=== PATIENT | male | born 1930 | race Caucasian/White ===

== ENCOUNTER 2016-12-10 19:17 | Emergency (ER) | payer MEDICARE ==
[~2016-12-10 19:17] MED LIST: Sodium Chloride 0.9% 1,000 ML BAG ONE; Sodium Chloride 0.9% 100 ML BAG ONE
[2016-12-10] MEDS ORDERED: Dexamethasone 10 MG/ML VIAL ONE (19:56)
[2016-12-10] MEDS ORDERED: Ondansetron HCl/PF 4 MG/2 ML Vial ONE (19:56)
[2016-12-10] MEDS ORDERED: Ketorolac Tromethamine 30 MG/ML VIAL ONE (19:56)
[2016-12-10] MEDS ORDERED: Phenergan/Codeine 10-6.25mg/5ml UDCUP ONE (19:56)
[2016-12-10 19:57] LABS: INR-International Normal Ratio 1.4; PTT 36.4 SEC (22.9-36.1); Prothrombin Time 17.5 SEC (12.0-14.7)
[2016-12-10 20:08] LABS: ALT (SGPT) 19 U/L (8-55); AST (SGOT) 17 U/L (5-34); Albumin 3.3 g/dL (3.4-4.8); Alkaline Phosphatase 85 U/L (40-150); Anion Gap 16 mmol/L (10-20); BUN (Urea Nitrogen) 23 mg/dL (8.4-25.7); CK (CPK) 13 U/L (30-200); Calc. Creatinine Clearance 0 mL/min (70-130); Calcium 9.2 mg/dL (7.8-10.44); Carbon Dioxide 25 mmol/L (23-31); Chloride 97 mmol/L (98-107); Estimated GFR-MDRD 48; Globulin 3.5 g/dL (2.4-3.5); Glucose 190 mg/dL (83-110); Magnesium 1.8 mg/dL (1.6-2.6); Potassium 3.8 mmol/L (3.5-5.1); Protein, Total 6.8 g/dL (5.8-8.1); Sodium 134 mmol/L (136-145)
[2016-12-10 20:10] LABS: Troponin I Less than 0.010 ng/mL (< 0.028)
[2016-12-10 20:19] LABS: Band 1 % (5-11); Hemoglobin 13.6 g/dL (14.0-18.0); Lymphocytes 2 % (21-51); MDiff Complete? YES; Mean Corpuscular HGB CONC 33.9 g/dL (32.0-36.0); Mean Corpuscular Hemoglobin 30.4 pg (27.0-31.0); Mean Corpuscular Volume 89.6 fl (80.0-94.0); Mean Platelet Volume 8.1 fL (7.4-10.4); Monocytes 9 % (0-10); Neutrophil 80 % (42-75); PLT Morphology Comment Appears Decreased; Platelet Count 125 thou/uL (130-400); RBC Distribution Width 12.6 % (11.5-14.5); RBC Morphology Normal; Reactive Lymphocytes 8 % (0-10); Red Blood Cell (RBC) Count 4.48 mill/uL (4.70-6.10); White Blood Cell (WBC) Count 18.5 thou/uL (4.8-10.8)
--- NOTE | 2016-12-10 20:35 | RAD ---
PA AND LATERAL CHEST: 12/10/16 COMPARISON: 07/29/14 exam. HISTORY: Dyspnea. Heart size is borderline to slightly enlarged. There is increased opacification of the right lung ba se consistent with a moderate pleural effusion with atelectasis or infiltrate. Surgical clips are no kimmie in the right hilar region. IMPRESSION: Postoperative changes with surgical clips in the right hilar region. There has been development of m oderately large right pleural effusion with associated parenchymal change. POS: MING
[2016-12-10 20:55] LABS: CKMB 0.4 ng/mL (0-6.6)
[2016-12-10] MEDS ORDERED: cefTRIAXone\\ROCEPHIN 1 GM VIAL ONE (21:01)
== END 2016-12-10 21:34 | disposition short-term general hospital (02) ==
LOC: MADERS 19:17
DX: J18.9 Pneumonia, unspecified organism (principal); J91.0 Malignant pleural effusion; I10 Essential (primary) hypertension; F32.9 Major depressive disorder, single episode, unspecified; Z87.891 Personal history of nicotine dependence; Z79.82 Long term (current) use of aspirin; Z79.899 Other long term (current) drug therapy
CPT/HCPCS: 71020; 80053; 82550; 82553; 83735; 83880; 84484; 85025; 85610; 85730; 87040; 93005; 94640; 94760; 96365; 96375; J0696; J1100; J1885; J1956; J2405; J7050; J7620

== ENCOUNTER 2016-12-17 12:30 | Inpatient (IN) | payer MEDICARE ==
[2016-12-17] MEDS ORDERED: HYDROcodone/Acetaminophen 5/325 mg Tablet PO PRN (14:30)
[2016-12-17] MEDS ORDERED: Acetaminophen 325 MG TAB PO PRN (14:32)
[2016-12-17] MEDS: Metoprolol Tartrate 25 MG TAB PO SCH (20:35)
[2016-12-17] MEDS: Amoxicillin/Potassium Clav 875 MG TAB PO SCH (20:35)
--- NOTE | 2016-12-17 22:43 | HP ---
DATE OF ADMISSION: 12/17/2016 ADMITTING PHYSICIAN: Michaela Florence M.D. PRIMARY CARE PHYSICIAN: Vini Reynoso M.D. REASON FOR ADMISSION: Skilled rehabilitation in [place] [facility]. HISTORY OF PRESENT ILLNESS: Mr. Barber is a very pleasant 85-year-old male who was admitted initially at [facility] on 12/11/2016 and was diagnosed for sepsis with acute organ dysfunction. He was also noted to have pneumonia, which he failed outpatient therapy. His CT scan of his chest showed loculated right pleural effusion with collapse and consolidation. Patient underwent thoracentesis. His thoracentesis was consistent with empyema. Thus cardiothoracic surgeon was consulted and did a decortication and thoracostomy and chest tube placement. The patient did well during the hospital course. He had a serial chest x-rays and subsequently the chest tube was removed. His cultures came back negative. He received a broad spectrum antibiotic therapy during his hospitalization and prior to discharge it was changed to oral antibiotic, currently on Augmentin. During this hospitalization , he was also noted to have acute kidney failure and hyperglycemia that has been stabilized. He was sent to [place] on 12/17/2016 for purposes of skilled rehabilitation. He was deemed medically stable to be discharged, thus transferred today. When evaluated, the patient was accompanied by his son-in- law. Patient was awake, alert, afebrile and hemodynamically stable upon admission. He reports that he remains generally weak, but no acute new issues. PAST MEDICAL HISTORY: 1. 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 2. 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 3. History of SVT status post ablation. 4. History of shingles in the past. 5. History of DVT in the past. 6. Hypertension. 7. Hypothyroidism. 8. Depression. 9. Anxiety. PAST SURGICAL HISTORY: 1. Right lower lobe lung resection by Dr. Villalobos. 2. Cardiac ablation. 3. Thoracotomy and thoracocentesis for empyema on 12/11/[address] Thompson. 3. Status post right redo thoracotomy with total pulmonary decortication on 04/[address] Jona Moreno. SOCIAL HISTORY: Patient is a former tobacco smoker, he quit last year. No active drug or alcohol abuse reported. He currently lives by himself, his family lives next to him. He is very independent in his daily living prior to this admission. ALLERGIES: No known allergies. FAMILY HISTORY: Noncontributory. CURRENT MEDICATIONS: Aspirin 81 mg p.o. daily, sertraline 50 mg p.o. daily, amlodipine 5 mg p.o. daily, metoprolol 25 mg p.o. daily, levothyroxine 50 mcg p.o. daily, Augmentin 875 mg p.o. b.i.d. for 7 days.[place] 5/325 mg po q 6 hrs REVIEW OF SYSTEMS: GENERAL: Denies fever, chills, anorexia. Reports general weakness and fatigue. HEENT: No acute visual changes or hearing changes. RESPIRATORY: No pain with breathing, active shortness of breath, wheezing, dyspnea on exertion, and pain with breathing and bloody sputum. CARDIAC: No chest pain, edema, cyanosis, or paroxysmal nocturnal dyspnea. GASTROINTESTINAL: No nausea, vomiting, abdominal pain, diarrhea, constipation, or rectal bleeding. GENITOURINARY: No dysuria, hematuria, frequency, urgency or incontinence. MUSCULOSKELETAL: No acute joint pains or joint effusions and myalgia. NEUROLOGIC: No focal numbness, focal weakness, loss of consciousness or seizures. PSYCH: Reports chronic depressive symptoms/anxiety. No hallucinations. No suicidal thoughts or ideations. SKIN: Positive postoperative wound from recent thoracotomy. LABORATORY DATA: Current lab works, 12/16/2016. CBC: WBC 7, hemoglobin 11.6, hematocrit 34.8, and platelets 112. Chemistry on 12/17/2016, sodium 135, potassium 3.7, BUN 14, creatinine 0.75, estimated GFR greater than 90, glucose 100, calcium 8.7, magnesium 1.8. A1c on 12/11/2016, 5.6. Liver function tests on 12/16/2016, AST 38, ALT 37, alkaline phosphatase 75, albumin 2.7, at that time potassium was 2.9. SPECIALISTS: Dr. Thompson and Dr. Jona Moreno. PHYSICAL EXAMINATION: VITAL SIGNS: Blood pressure 147/71, temperature 97.7, pulse 67, respirations 18 , O2 saturation 97% on room air, weight 148 pounds, and height 5 feet 8 inches. GENERAL: The patient is awake, alert, oriented x3, not in distress. Generally weak looking, frail, elderly, not comfortable in exam. HEENT: Normocephalic, atraumatic. PERRL, intact EOM, nonicteric sclerae. Oral mucosa is moist. NECK: Supple. No LAD, no JVD, no bruit. CHEST: Normal excursion. Postoperative site, status post thoracostomy is dry , well-coaptated edges, no drainage, no covered with clean dressing. LUNGS: , Diminished breath sounds on the right lung field, Clear breath sounds left lung field. No rales, no crackles, no rhonchi, no wheezing. ABDOMEN: Flat, soft, normoactive bowel sounds, nondistended, nontender. No rebound, no guarding. Negative CVA tenderness bilaterally. EXTREMITIES: No edema, no cyanosis. SKIN: Moist and warm. NEUROLOGIC: Nonfocal. DTRs 2+ unsteady gait. PSYCHIATRIC: Calm with appropriate demeanor and affect. Good eye contact. ASSESSMENT: 1. Deconditioning. 2. Recent sepsis with acute organ dysfunction. 3. Right-sided empyema of the lung, status post thoracotomy, thoracentesis, and decortication and chest tube placement and removal. 4. Abnormal electrolytes, corrected. 5. Acute kidney failure, improved. 6. Hypothyroidism. 7. Hypertension. 8. Chronic atrial fibrillation. 9. History of lung cancer, required lobectomy. PLAN: The patient is admitted to [facility] for a skilled rehabilitation. PT consult in order to gain modified independence with his gait and ADL skills prior to returning to the home environment. OT consult to gain modified independence with self care ADL skills. The patient's pain will be managed with p.r.n. narcotics as well as constipation management. His comorbidities including right-sided empyema of the lung, status post thoracotomy , thoracocentesis and decortication, sepsis with acute organ dysfunction and electrolyte abnormality is currently stable and will be monitored closely. Routine labs will be ordered for routine monitoring. I will continue to monitor the patient for any medical comorbidities that may interfere with rehab progress. DISPOSITION: Home. ESTIMATED LENGTH OF STAY: 1-2 weeks. Further recommendations depending on the hospital course. CODE STATUS: Full. MTDD
[2016-12-18] MEDS ORDERED: Loperamide HCl 2 MG CAP PO PRN (06:33)
[2016-12-18] MEDS: Amoxicillin/Potassium Clav 875 MG TAB PO SCH ×2 (08:49→21:00)
[2016-12-18] MEDS: Levothyroxine Sodium 50 MCG TAB PO SCH (08:49)
[2016-12-18] MEDS: Aspirin 81 mg Enteric Coated Tablet PO SCH (08:50)
[2016-12-18] MEDS: Metoprolol Tartrate 25 MG TAB PO SCH ×2 (08:50→21:00)
[2016-12-18] MEDS ORDERED: Levothyroxine Sodium 50 MCG TAB PO SCH (09:00)
[2016-12-19] MEDS: Amoxicillin/Potassium Clav 875 MG TAB PO SCH ×2 (09:28→20:19)
[2016-12-19] MEDS: Levothyroxine Sodium 50 MCG TAB PO SCH (09:28)
[2016-12-19] MEDS: Aspirin 81 mg Enteric Coated Tablet PO SCH (09:29)
[2016-12-19] MEDS: Metoprolol Tartrate 25 MG TAB PO SCH ×2 (09:29→20:19)
[2016-12-20] MEDS: Aspirin 81 mg Enteric Coated Tablet PO SCH (09:06)
[2016-12-20] MEDS: Metoprolol Tartrate 25 MG TAB PO SCH ×2 (09:06→21:29)
[2016-12-20] MEDS: Amoxicillin/Potassium Clav 875 MG TAB PO SCH ×2 (09:07→21:29)
[2016-12-20] MEDS: Levothyroxine Sodium 50 MCG TAB PO SCH (09:07)
[2016-12-21] MEDS: Amoxicillin/Potassium Clav 875 MG TAB PO SCH ×2 (08:07→20:31)
[2016-12-21] MEDS: Aspirin 81 mg Enteric Coated Tablet PO SCH (08:07)
[2016-12-21] MEDS: Metoprolol Tartrate 25 MG TAB PO SCH ×2 (08:08→20:31)
[2016-12-21] MEDS: Levothyroxine Sodium 50 MCG TAB PO SCH (08:08)
[2016-12-21] MEDS: hydrOXYzine 25 MG TAB PO PRN (17:36)
[2016-12-22 00:15] VITALS: BMI 22.1
[2016-12-22] MEDS: Levothyroxine Sodium 50 MCG TAB PO SCH (08:40)
[2016-12-22] MEDS: Amoxicillin/Potassium Clav 875 MG TAB PO SCH ×2 (08:40→20:21)
[2016-12-22] MEDS: Aspirin 81 mg Enteric Coated Tablet PO SCH (08:40)
[2016-12-22] MEDS: Metoprolol Tartrate 25 MG TAB PO SCH ×2 (08:40→20:21)
[2016-12-23] MEDS: hydrOXYzine 25 MG TAB PO PRN ×2 (05:04→20:54)
[2016-12-23] MEDS: Amoxicillin/Potassium Clav 875 MG TAB PO SCH ×2 (08:31→20:49)
[2016-12-23] MEDS: Aspirin 81 mg Enteric Coated Tablet PO SCH (08:31)
[2016-12-23] MEDS: Metoprolol Tartrate 25 MG TAB PO SCH ×2 (08:31→20:49)
[2016-12-23] MEDS: Levothyroxine Sodium 50 MCG TAB PO SCH (08:32)
[2016-12-24] MEDS: Levothyroxine Sodium 50 MCG TAB PO SCH (09:39)
[2016-12-24] MEDS: Metoprolol Tartrate 25 MG TAB PO SCH ×2 (09:39→21:21)
[2016-12-24] MEDS: Amoxicillin/Potassium Clav 875 MG TAB PO SCH (09:39)
[2016-12-24] MEDS: Aspirin 81 mg Enteric Coated Tablet PO SCH (09:39)
[2016-12-25] MEDS: Metoprolol Tartrate 25 MG TAB PO SCH (09:01)
[2016-12-25] MEDS: Aspirin 81 mg Enteric Coated Tablet PO SCH (09:01)
[2016-12-25] MEDS: Levothyroxine Sodium 50 MCG TAB PO SCH (09:01)
[2016-12-25 09:53] VITALS: BP 160/69; TEMP 97.9
--- NOTE | 2016-12-26 02:12 | DIS ---
DATE OF ADMISSION: 12/17/2016 DATE OF DISCHARGE: 12/25/2016 ATTENDING: Michaela Pride M.D. PRIMARY CARE PHYSICIAN: Vini Reynoso M.D. SPECIALISTS: Dr. Thompson, pulmonary and Dr. Villalobos and Dr. Moreno, [facility]. REASON FOR ADMISSION: Skilled rehabilitation in [facility] post- hospitalization. FINAL DIAGNOSES: 1. Physical deconditioning. 2. Recent sepsis with acute organ dysfunction, improved. 3. Right-sided empyema of the lung, status post thoracotomy, status post thoracentesis and decortication and chest tube placement and removal. 4. Abnormal electrolytes, corrected. 5. Acute kidney failure, resolved. 6. Postoperative wound improving. SECONDARY DIAGNOSES: 1. Hypothyroidism. 2. Hypertension. 3. Chronic atrial fibrillation. 4. History of lung cancer requiring lobectomy. DISPOSITION: Home with daughter. CONDITION ON DISCHARGE: Stable. HOME MEDICATIONS: Aspirin 81 mg p.o. daily, sertraline 50 mg p.o. daily, amlodipine 5 mg p.o. daily, metoprolol 25 mg p.o. daily, levothyroxine 50 mcg p.o. daily, [place] 5/325 mg p.o. q.6 hours p.r.n. DISCHARGE INSTRUCTIONS: 1. Diet: Regular. 2. Activity: Ad darinel, fall precautions. 3. Follow up with Dr. Reynoso in 1-2 weeks. 5. Follow up with Dr. Thompson for pulmonary care in 1 week. 6. Home health to follow the patient at home for penitentiary and to continue PT and OT. HISTORY OF PRESENT ILLNESS AND HOSPITAL COURSE: Mr. Dudley is a very pleasant 86-year-old male who was admitted initially to [facility] on 12/11/2016 for sepsis with acute organ dysfunction. He was noted to have pneumonia at that time with failed outpatient therapy. On further examination, he was noted to have a loculated right pleural effusion with collapse and consolidation by CT scan of his chest. The patient underwent thoracentesis, which is consistent with emphysema. The patient also underwent decortication, thoracostomy and chest tube placement that was removed appropriately. The patient did well postoperatively. His culture from the hospital came back negative. He was placed on broad spectrum IV antibiotic that was subsequently shifted to oral antibiotic. He was transferred on 2016 to [place] swing bed for purposes of skilled rehabilitation for strengthening, gait training, and ADL training prior to going back home. The patient did well with a 1 week therapy in [place]. He was walking 300 feet done by assist without using assistive device prior to discharge. The patient never had any respiratory issues during his hospital stay. His lung sounds on the right is decreased compared to the left, but stable since admission. O2 sats remained stable at room air was addressed and with exertion. On 12/25/2016, the patient was discharged home with daughter in a stable condition, but deemed may benefit fr further rehab at home. Vital signs prior to discharge, blood pressure 160/69, temperature 97.9, heart rate 58, respiration 18, O2 saturation 98% on room air, weight 145 pounds and 6 ounces, height 5 feet 8 inches. Time spent on this discharge 35 minutes. MTDD
== END 2016-12-25 15:45 | disposition home health service (06) | DRG 871 ==
LOC: MADMS 12:36
PROVIDERS: ADMIT Family Medicine; ATTEND Family Medicine
DX: A41.9 Sepsis, unspecified organism (principal); J86.9 Pyothorax without fistula; N17.9 Acute kidney failure, unspecified; R65.20 Severe sepsis without septic shock; E03.9 Hypothyroidism, unspecified; I10 Essential (primary) hypertension; Z85.46 Personal history of malignant neoplasm of prostate; Z85.118 Personal history of other malignant neoplasm of bronchus and lung; F41.9 Anxiety disorder, unspecified; F32.9 Major depressive disorder, single episode, unspecified; I48.2 Chronic atrial fibrillation; Z87.891 Personal history of nicotine dependence; Z86.718 Personal history of other venous thrombosis and embolism; R19.7 Diarrhea, unspecified; E87.8 Other disorders of electrolyte and fluid balance, not elsewhere classified; R53.1 Weakness
CPT/HCPCS: G8978-GP-CJ; G8979-GP-CI

== ENCOUNTER 2018-02-14 20:45 | Emergency (ER) | payer MEDICARE ==
[~2018-02-14 20:45] MED LIST changes: -Sodium Chloride 0.9% 1,000 ML BAG ONE; -Sodium Chloride 0.9% 100 ML BAG ONE; +Sodium Chloride Irrig Solution 250 ML BOT ONE
[2018-02-14] MEDS ORDERED: Clindamycin 150 MG CAP ONE (21:37)
== END 2018-02-14 21:55 | disposition home or self-care (01) ==
LOC: MADERS 20:45
DX: S61.217A Laceration without foreign body of left little finger without damage to nail, initial encounter (principal); I10 Essential (primary) hypertension; F32.9 Major depressive disorder, single episode, unspecified; Z87.891 Personal history of nicotine dependence; W26.8XXA Contact with other sharp object(s), not elsewhere classified, initial encounter
CPT/HCPCS: 12001; J2001

== ENCOUNTER 2022-11-17 16:10 | Outpatient (CLI) | payer MEDICARE | END 2022-11-17 16:11 | disposition home or self-care (01) | LOC: MADRAD 16:10 | PROVIDERS: ATTEND Nurse Practitioner Family | DX: R07.81 Pleurodynia (principal) ==